=== PATIENT | male | born 1995 | race American Indian/Alaskan Native ===

== ENCOUNTER 2018-06-06 20:16 | Emergency (ER) | payer OTHER ==
[2018-06-06] MEDS ORDERED: ROCEPHIN IM STA (22:05)
[2018-06-06] MEDS ORDERED: ZITHROMAX PO STA (22:05)
[2018-06-06] MEDS ORDERED: XYLOCAINE 1% MPF 5 mL INFILTRATI ONE (22:05)
--- NOTE | 2018-06-06 22:05 | Emergency Department Report ---
Blank Doc - Documentation Documentation: 22 year male presents with dysuria and hematuria for 1 day. STD?. no dischage , no trauma. reports green discharge 4-5 days ago.
[2018-06-06 22:10] VITALS: BP 152/96
[2018-06-07 00:14] LABS: Bilirubin,Urine NEG (Negative); Blood,Urine SM (Negative); Color,Urine Yellow (Yellow); Mucus,Urine 3+ /HPF
--- NOTE | 2018-06-07 00:42 | Emergency Department Report ---
ED Male HPI - General Chief complaint: Urogenital-Male Stated complaint: PAINFUL URINATION Time Seen by Provider: 06/06/18 22:03 Source: patient Mode of arrival: Ambulatory Limitations: No Limitations - History of Present Illness Initial comments: This is a 22-year-old male who presents to ED complaining of pain with urination started today. Patient states he also notices a little bit of blood in his urine today. Patient states that he has pain of discharge about 3 days ago that has not resolved. Patient denies any abdominal pelvic pain. He denies nausea vomiting or fever. He denies penile lesion or scrotum swelling or pain. MD Complaint: penile discharge, dysuria - Related Data Previous Rx's Medication Instructions Recorded Last Taken Type Doxycycline [Vibramycin CAP] 100 mg PO Q12HR #14 capsule 11/30/17 Unknown Rx metroNIDAZOLE [Flagyl] 500 mg PO ONCE #4 tab 06/07/18 Unknown Rx Allergies Allergy/AdvReac Type Severity Reaction Status Date / Time No Known Allergies Allergy Verified 06/06/18 20:34 ED Review of Systems ROS: Stated complaint: PAINFUL URINATION Other details as noted in HPI Comment: All other systems reviewed and negative ED Past Medical Hx - Past Medical History Previous Medical History?: Yes Additional medical history: STD - Surgical History Past Surgical History?: No - Social History Smoking Status: Never Smoker - Medications Home Medications: Home Medications Medication Instructions Recorded Confirmed Last Taken Type Doxycycline [Vibramycin CAP] 100 mg PO Q12HR #14 capsule 11/30/17 Unknown Rx metroNIDAZOLE [Flagyl] 500 mg PO ONCE #4 tab 06/07/18 Unknown Rx ED Physical Exam - General Limitations: No Limitations General appearance: alert, in no apparent distress - Head Head exam: Present: atraumatic, normocephalic - Eye Eye exam: Present: normal appearance - ENT ENT exam: Present: mucous membranes moist - Neck Neck exam: Present: normal inspection - Respiratory Respiratory exam: Present: normal lung sounds bilaterally. Absent: respiratory distress - Cardiovascular Cardiovascular Exam: Present: regular rate, normal rhythm. Absent: systolic murmur, diastolic murmur, rubs, gallop - GI/Abdominal GI/Abdominal exam: Present: soft, normal bowel sounds - Rectal Rectal exam: Present: deferred - Extremities Exam Extremities exam: Present: normal inspection - Back Exam Back exam: Present: normal inspection - Neurological Exam Neurological exam: Present: alert, oriented X3 - Psychiatric Psychiatric exam: Present: normal affect, normal mood - Skin Skin exam: Present: warm, dry, intact, normal color. Absent: rash ED Course Vital Signs 06/06/18 06/06/18 22:02 23:52 Temperature 98 F Pulse Rate 77 Respiratory 16 18 Rate Blood Pressure 152/96 O2 Sat by Pulse 100 Oximetry ED Medical Decision Making - Medical Decision Making 22-year-old male presents with possible STD exposure. ED course: Urinalysis and gonorrhea and Chlamydia cultures obtained. Urinalysis positive for trace leukocyte esterase Patient received 250 mg of Rocephin, azithromycin 1 g Discussed with patient possible STD due to exposure. Discussed with patient findings and treatment Discussed prophylaxis treatment patient is to abstain from sex 7-10 days as treatment. Discussed patient partner knowledge and treatment. Discussed the follow-up with the health department for further STD testing. Patient's alert and oriented times 3. Vital signs are normal patient is in no acute discharge. Patient will be discharged home with instructions. Critical care attestation.: If time is entered above; I have spent that time in minutes in the direct care of this critically ill patient, excluding procedure time. ED Disposition Clinical Impression: STD exposure, Dysuria Disposition: DC-01 TO HOME OR SELFCARE Is pt being admited?: No Does the pt Need Aspirin: No Condition: Stable Instructions: Dysuria (ED), Urinary Tract Infection in Men (ED), Sexually Transmitted Diseases (ED), Safe Sex (ED) Additional Instructions: Make sure to follow up with the primary care physician as discussed. Take all your medications as you've been prescribed. If you have any worsening symptoms or develop new symptoms please return to ED immediately. Prescriptions: metroNIDAZOLE [Flagyl] 500 mg PO ONCE #4 tab Referrals: JESICA JONES MD [Primary Care Provider] - 3-5 Days [facility] [Outside] - 3-5 Days [facility] [Outside] - 3-5 Days Forms: Work/School Release Form(ED) Time of Disposition: 00:48
== END 2018-06-07 01:01 | disposition home or self-care (01) ==
LOC: ED 20:16
DX: Z20.2 Contact with and (suspected) exposure to infections with a predominantly sexual mode of transmission (principal)
CPT/HCPCS: 81001; 96372; 99283; J0696